=== PATIENT | male | born 1945 | race Caucasian/White ===

== ENCOUNTER 2018-12-17 13:21 | Outpatient (RCR) | payer MEDICARE, OTHER | END 2019-03-17 | disposition home or self-care (01) | LOC: ONC 13:21 | PROVIDERS: ATTEND Radiology Radiation Oncology | DX: Z01.89 Encounter for other specified special examinations (principal) ==

== ENCOUNTER 2019-05-21 05:36 | Outpatient (CLI) | payer OTHER ==
[~2019-05-21] VITALS: Ht 170 cm; Wt 95.0 kg
[2019-05-21] MEDS ORDERED: ATEN50TA PO (16:10)
== END 2019-05-21 16:21 | disposition home or self-care (01) ==
LOC: PREOP 05:36
PROVIDERS: ATTEND Radiology Radiation Oncology
DX: Z01.818 Encounter for other preprocedural examination (principal)

== ENCOUNTER 2019-05-27 11:37 | Day surgery (SDC) | payer OTHER ==
[~2019-05-27] VITALS: Ht 170 cm; Wt 95.0 kg
[2019-05-27] VITALS (10 sets, daily range): BP systolic 120–156; BP diastolic 71–95
[~2019-05-27 11:37] MED LIST: ATEN50TA PO
[2019-05-27] MEDS ORDERED: LEVOFLOXACIN 500 MG/100 ML IV 100 ML IV ONE (11:45)
--- NOTE | 2019-05-27 11:47 | Progress Note-Pre Operative ---
Pre-Operative Progress Note H&P Reviewed The H&P was reviewed, patient examined and no changes noted. Date Seen by Provider: May 27, 2019 Time Seen by Provider: 11:47 Date H&P Reviewed: May 27, 2019 Time H&P Reviewed: 11:47 Pre-Operative Diagnosis: Prostate cancer cT2b, PSA 19.34, Susana 7 (4+3) w/ ALESHIA LAGUNAS MD May 27, 2019 11:47
[2019-05-27] MEDS ORDERED: CIPR-226 PO (11:50)
[2019-05-27] MEDS ORDERED: ACET1TAB43 PO (11:51)
--- NOTE | 2019-05-27 11:53 | Discharge Inst-Simple/Standard ---
Discharge Inst-Standard Reconcile Patient Problems Problems Reviewed?: Yes Discharge Medications New, Converted or Re-Newed RX: RX Given to Pt/Family Patient Instructions/Follow Up Plan of Care/Instructions/FU: 1) Follow up with Dr. Glynn 06/21 at 1:30 pm. 2) Post implant scan at [facility] 06/23 at 9:00 am. Activity as Tolerated: Yes Discharge Diet: No Restrictions Other Inst to Patient Please instruct patient on walter catheter removal. Date to be determined by Dr. Glynn. ALESHIA AVILA MD May 27, 2019 11:53
[2019-05-27] MEDS ORDERED: CATHETER FLUSH 10 ML SYR IV PRN (12:00)
[2019-05-27] MEDS: LACTATED RINGERS 1,000 ML IV PRN ×2 (13:26→14:29)
[2019-05-27] MEDS ORDERED: BACITRACIN OINTMENT 28 GM TUBE ONE (13:28)
[2019-05-27] MEDS ORDERED: IOPAMIDOL 61% 30 ML (ISOVUE 300) VIAL ONE (13:28)
[2019-05-27] MEDS ORDERED: proPOfol 200 MG/20 ML (DIPRIVAN) VIAL IV ONE (13:36)
[2019-05-27] MEDS ORDERED: DEXAMETHASONE 10 MG/ML (DECADRON) 1 ML VIAL ONE (13:36)
[2019-05-27] MEDS ORDERED: SEVOFLURANE (ULTANE) 15 ML INHAL SOLN ONE (13:36)
[2019-05-27] MEDS ORDERED: fentaNYL INJECTION 100 MCG/2 ML AMP ONE (13:36)
[2019-05-27] MEDS ORDERED: ONDANSETRON 4 MG/2 ML (SDV) Z0FRAN ONE (13:36)
[2019-05-27] MEDS ORDERED: LIDOCAINE PF 2% 5 ML (XYLOCAINE) VIAL ONE (13:36)
--- NOTE | 2019-05-27 15:17 | Progress Note-Post Operative ---
Post-Operative Progess Note Surgeon (s)/Tape Rules Printing Machine Operator (s) Surgeon ALESHIA AVILA MD Tape Rules Printing Machine Operator: Ruby LINO MD Pre-Operative Diagnosis Prostate cancer cT2b, PSA 19.34, Susana 7 (4+3) w/ SVI Post-Operative Diagnosis Same as pre-op Procedure & Operative Findings Date of Procedure 05/27/19 Procedure Performed/Findings (1) 67% Cesium 131 permanent prostate seed implant (2) Injection of biodegradable hydrogel prostate-rectal spacer utilizing the SpaceOAR system (3) cystogram prostate volume 21.75 cc Anesthesia Type General Estimated Blood Loss Estimated blood loss (mL): Minimal Specimens/Packing Specimens Removed None Packing: None ALESHIA AVILA MD May 27, 2019 15:17
--- NOTE | 2019-05-27 15:50 | NUR ---
TO AMB SURG FROM PAR PER CART. ALERT, RATES GENITAL/RECTAL PRESSURE 5. PO FLUIDS AND CRACKERS PROVIDED. TAPED ABD OVER PERINEAL SURGICAL SITE WITH NO BREAKTHROUGH BLEEDING NOTED.
--- NOTE | 2019-05-27 16:12 | Anesthesia-General Post-Op ---
General Patient Condition Mental Status/LOC: Same as Preop Cardiovascular: Satisfactory Nausea/Vomiting: Absent Respiratory: Satisfactory Pain: Controlled Complications: Absent Post Op Complications Complications None Follow Up Care/Instructions Patient Instructions None needed. Anesthesia/Patient Condition Patient Condition Patient is doing well, no complaints, stable vital signs, no apparent adverse anesthesia problems. No complications reported per nursing. FANNY CARPENTER CRNA May 27, 2019 16:12
[2019-05-27] MEDS ORDERED: APAP 300 MG/CODEINE 30 MG (TYLENOL #3) TAB PO ONE (16:15)
--- NOTE | 2019-05-27 16:21 | NUR ---
TAKING PO FLUIDS AND CRACKERS WITHOUT PROBLEM. TYLENOL #3, ONE TAB, GIVEN PO FOR PAIN.
--- NOTE | 2019-05-27 16:48 | Diagnostic Imaging Report ---
INDICATION: Prostate cancer. EXAMINATION: Intraoperative fluoroscopic view was obtained during radiation seed implant for prostate cancer. FINDINGS: Seeds are visualized over the prostatic region. Martino catheter is in place in the bladder. Contrast injection of the Martino catheter demonstrates normal appearance of the bladder. 16 seconds of fluoroscopy time was used. IMPRESSION: Normal-appearing bladder on single view study with contrast injection. Radiation seed implants are seen over the prostate. Dictated by: Dictated on workstation # [id number]
--- NOTE | 2019-05-27 17:15 | NUR ---
REQUESTING DISMISSAL. PAIN RATED 2. NO BLEEDING FROM PENILE MEATUS. ABD REMOVED FROM PERINEAL SURGICAL SITE, NO BLEEDING NOTED. DISCHARGE INSTRUCTIONS DISCUSSED WITH AND DEMONSTRATED TO PT AND PT'S . SUPPLIES FOR CATHETER CARE GIVEN TO PT AND INDWELLING ARNOLD CATH PUT TO LEG BAG FOR DISMISSAL. CATHETER SECURED IN OR TO LEFT THIGH WITH STATLOCK DEVICE.
--- NOTE | 2019-05-27 17:25 | NUR ---
URINE CLEAR, LIGHT YELLOW THROUGHOUT RECOVERY. 600 CC URINE OUTPUT TO ARNOLD BAG ON DISMISSAL.
--- OUTSIDE RECORDS SUMMARY | 2019-05-29 08:30 | XMS REPORT | Continuity of Care Document ---
Author Organization Unknown Address Unknown Phone Unavailable Allergies Active Description Code Type Severity Reaction Onset Reported/Identified Relationship to Patient Clinical Status Yes Sulfa (Sulfonamide Antibiotics) [id number] Drug Allergy Unknown FROM CHILDHOOD 05/21/2019 Medications There is no data. Problems Date Dx Coded Attending Type Code Diagnosis Diagnosed By 03/17/2019 ALESHIA AVILA MD Ot Z01.8 9 ENCOUNTER FOR OTHER SPECIFIED SPECIAL EX 03/19/2019 ALESHIA AVILA MD Ot Z01.8 9 ENCOUNTER FOR OTHER SPECIFIED SPECIAL EX 05/21/2019 ALESHIA AVILA MD Ot Z01.8 18 ENCOUNTER FOR OTHER PREPROCEDURAL EXAMIN 05/22/2019 ALESHIA AVILA MD Ot Z01.8 18 ENCOUNTER FOR OTHER PREPROCEDURAL EXAMIN 05/27/2019 ALESHIA AVILA MD Ot C61 MALIGNANT NEOPLASM OF PROSTATE Procedures There is no data. Results Test Result Range Methicillin resistant Staphylococcus aur eus (MRSA) screening culture - 05/27/19 12:05 Methicillin resistant Staphylococcus aureus (MRSA) scr eening culture NEG NRG Encounters ACCT No. Visit Date/Time Discharge Status Pt. Type Provider Facility Loc./Unit Complaint [id number] 05/27/2019 11:37:00 17:25:00 [facility] [id number] 05/21/2019 05:36:00 16:21:00 DIS Outpatient ALESHIA AVILA MD [facility] PREOP PROSTATE CANCER [id number] 04/22/2019 12:37:00 23:59:59 CLS Outpatient ALESHIA AVILA MD [facility] ONC [id number] 12/17/2018 13:21:00 00:01:00 DIS Outpatient ALESHIA AVILA MD [facility] ONC
== END 2019-05-27 17:25 | disposition home or self-care (01) ==
LOC: SDC 11:37
PROVIDERS: ATTEND Radiology Radiation Oncology
DX: C61 Malignant neoplasm of prostate (principal); I10 Essential (primary) hypertension; R97.20 Elevated prostate specific antigen [PSA]; F41.9 Anxiety disorder, unspecified; Z88.2 Allergy status to sulfonamides; Z79.899 Other long term (current) drug therapy
CPT/HCPCS: 76965; 77290; 77318; 77332; 77370; 77470; 77778; 87081

== ENCOUNTER 2019-06-24 08:45 | Outpatient (RCR) | payer MEDICARE, OTHER ==
[~2019-06-24 08:45] MED LIST changes: +ACET1TAB43 PO; +CIPR-226 PO
== END 2019-07-21 | disposition home or self-care (01) ==
LOC: ONC 08:45
PROVIDERS: ATTEND Radiology Radiation Oncology
DX: C61 Malignant neoplasm of prostate (principal)
CPT/HCPCS: 76873

== ENCOUNTER 2019-11-30 09:42 | Outpatient (RCR) | payer OTHER | END 2019-12-27 | disposition home or self-care (01) | LOC: ONC 09:42 | PROVIDERS: ATTEND Radiology Radiation Oncology | DX: Z51.0 Encounter for antineoplastic radiation therapy (principal); C61 Malignant neoplasm of prostate | CPT/HCPCS: 77290; 77300; 77301; 77332; 77336; 77338; 77385; 77470 ==

== ENCOUNTER → 2020-06-09 | Outpatient (CLI) | payer MEDICARE, OTHER | LOC: EDSTATUS 12-28 11:54 → ONC 13:17 | PROVIDERS: ATTEND Radiology Radiation Oncology | DX: C61 Malignant neoplasm of prostate (principal) | CPT/HCPCS: 99213 ==

== ENCOUNTER 2021-09-20 12:29 | Emergency (ER) | payer MEDICARE ==
[~2021-09-20] VITALS: Ht 170.2 cm; Wt 91.6 kg
[~2021-09-20 12:29] MED LIST changes: +ACET-11 PO; -ACET1TAB43 PO
--- NOTE | 2021-09-20 12:48 | ED General ---
General Chief Complaint: Overdose Stated Complaint: ALPRAZOLAM OVERDOSE; LETHARGY Source of Information: Patient, Family Exam Limitations: No Limitations History of Present Illness Date Seen by Provider: Sep 20, 2021 Time Seen by Provider: 12:32 Initial Comments 75yoM with PMH of prostate cancer coming in due to concern for an overdose of Xanax. Previous was on 0.25mg a couple times a day as needed. They recently increased the dose to 0.5mg and the patient thought they cut the dose in half due to miscommunication. He took 4 of them around 8am for a total of 2mg and has been sleepier than usual. He takes them as needed for anxiety, and was feeling more anxious this morning due to a family situation. Denies wanting to harm himself and this was completely accidental. Denies any chest pain, SOB, abd pain, n/v/d, weakness, numbness, headache, vision changes, or any other concerns. Has been ambulating on his own and eating/drinking without difficulty. Allergies and Home Medications Allergies Coded Allergies: Sulfa (Sulfonamide Antibiotics) (Verified Allergy, Unknown, FROM CHILDHOOD, 05/21/19) Patient Home Medication List Home Medication List Reviewed: Yes Acetaminophen with Codeine (Acetaminophen-Cod #3 Tablet) 1 Each Tablet, 1 EACH PO PRN PRN for PAIN-MODERATE (5-7) Prescribed by: ALESHIA AVILA on 05/27/19 1151 Atenolol (Atenolol) 50 Mg Tablet, 50 MG PO DAILY, (Reported) Entered as Reported by: HAYLEY FERREIRA on 05/21/19 1610 Ciprofloxacin HCl (Cipro) 250 Mg Tablet, 250 MG PO BID Prescribed by: ALESHIA AVILA on 05/27/19 1150 Review of Systems Review of Systems Constitutional: No fever EENTM: No blurred vision Respiratory: no symptoms reported Cardiovascular: no symptoms reported Gastrointestinal: no symptoms reported Genitourinary: no symptoms reported Musculoskeletal: no symptoms reported Skin: no symptoms reported Psychiatric/Neurological: Other (sleepy) Hematologic/Lymphatic: No Symptoms Reported Immunological/Allergic: no symptoms reported All Other Systems Reviewed Negative Unless Noted: Yes Past Mxvchvh-Icflgo-Peaxkp Hx Patient Social History Tobacco Use?: No Seasonal Allergies Seasonal Allergies: No Past Medical History Surgeries: Yes (INGUINAL AND UMBILICAL HERNIA) Respiratory: No Cardiac: Yes Hypertension Neurological: No Sexually Transmitted Disease: No HIV/AIDS: No Genitourinary: No Gastrointestinal: No Musculoskeletal: No Endocrine: No HEENT: Yes (GLASSES, UPPER DENTURES) Loss of Vision: Denies Hearing Impairment: Denies Cancer: Yes Prostate Did You Recieve Any Treatments: Yes Psychosocial: No Integumentary: No Blood Disorders: No Adverse Reaction/Blood Tranf: No (N/A) Physical Exam Vital Signs Vital Signs - First Documented 09/20/21 12:33 Temp 36.4 Pulse 61 Resp 21 B/P (MAP) 132/74 (93) Pulse Ox 95 O2 Delivery Room Air Capillary Refill : Height, Weight, BMI Height: '" Weight: lbs. oz. kg; 32.87 BMI Method: General Appearance: No Apparent Distress, WD/WN Eyes: Bilateral Eye Normal Inspection HEENT: PERRL/EOMI, Normal ENT Inspection, Pharynx Normal Neck: Full Range of Motion, Normal Inspection, Non Tender, Supple Respiratory: Chest Non Tender, Lungs Clear, Normal Breath Sounds, No Accessory Muscle Use, No Respiratory Distress Cardiovascular: Regular Rate, Rhythm, No Edema, Normal Peripheral Pulses Gastrointestinal: Normal Bowel Sounds, Non Tender, Soft; No Distended, No Guarding Back: Normal Inspection, No CVA Tenderness, No Vertebral Tenderness Extremity: Normal Capillary Refill, Normal Inspection, Normal Range of Motion, Non Tender, No Calf Tenderness, No Pedal Edema Neurologic/Psychiatric: Alert, Oriented x3, No Motor/Sensory Deficits, Normal Mood/Affect, rx specialist II-XII Norm as Tested, Other (normal gait, normal finger to nose, normal oynd-ei-xtme, normal tandem gait) Skin: Normal Color, Warm/Dry Lymphatic: No Adenopathy Progress/Results/Core Measures Suspected Sepsis SIRS Temperature: Pulse: Respiratory Rate: Blood Pressure / Mean: Results/Orders Vital Signs/I&O 09/20/21 12:33 Temp 36.4 Pulse 61 Resp 21 B/P (MAP) 132/74 (93) Pulse Ox 95 O2 Delivery Room Air Capillary Refill : Progress Note : Progress Note 75-year-old male presenting after he took 2 mg of Xanax instead of 0.5 which was his intention. He was sleepier than usual so wanted to get checked out. ABCs were intact and vitals were stable on presentation. Comprehensive neuro exam is completely normal. Symptoms consistent with a mild overdose. We will watch him for some time just to ensure he does not become overly sedated, but given its been over 5 hours since he took them, I think is unlikely that will happen. On reassessment, continues to do well, and I believe he stable for discharge with outpatient follow-up. He was sent home with strict return precautions Departure Impression Primary Impression: Accidental overdose of alprazolam Disposition: HOME, SELF-CARE Condition: Stable Departure-Patient Inst. Decision time for Depature: 14:01 Referrals: DEVIKA BOX DO (PCP) Primary Care Physician Patient Instructions: Accidental Overdose, Adult ED Add. Discharge Instructions: Expect to be sleepier today, and potentially a little groggy in the morning. Do not take any more Xanax until you feel completely normal. It is okay to eat and drink, and sleep as you feel like you need to. Work/School Note: Work Release Form Date Seen in the Emergency Department: Sep 20, 2021 Return to Work: Sep 21, 2021 Restrictions: No Restrictions MEMO ORTIZ MD Sep 20, 2021 12:47
[2021-09-20 14:15] VITALS: BP 130/77
== END 2021-09-20 14:15 | disposition home or self-care (01) ==
LOC: EDUNIT# 12:29 → ER FS 12:32
DX: T42.4X1A Poisoning by benzodiazepines, accidental (unintentional), initial encounter (principal); F41.9 Anxiety disorder, unspecified; Z79.899 Other long term (current) drug therapy; Z28.310 Unvaccinated for COVID-19
CPT/HCPCS: 99281